=== PATIENT | male | born 1975 | race Caucasian/White ===

== ENCOUNTER → 2022-07-26 14:52 | Outpatient (CLI) | payer OTHER, SELFPAY ==
[2022-07-26 16:15] LABS: Add Manual Diff / Slide Review NO; Basophils Absolute Auto 0 /uL (0-100); Basophils Percent Auto 0.6 % (0-2); Eosinophils Absolute Auto 200 /uL (0-450); Hematocrit 45.6 % (41-53); Hemoglobin 15.6 g/dL (13.5-17.5); Lymphocytes Absolute Auto 2100 /uL (1100-4500); Lymphocytes Percent Auto 27.1 % (25-40); Mean Corpuscular HGB Conc 34.3 % (30-36); Mean Corpuscular Hemoglobin 31.4 PG (26-34); Mean Corpuscular Volume 91.5 fL (80-100); Monocytes Absolute Auto 600 /uL (0-900); Monocytes Percent Auto 8.2 % (3-14); Neutrophils Absolute Auto 4700 /uL (1500-7000); Neutrophils Percent Auto 61.1 % (50-75); Platelet Count 224 X10^3/uL (150-400); Red Blood Cell Count 4.98 X10^6/uL (4.5-5.9); Red Cell Distribution Width 13.5 % (11.6-14.8); White Blood Cell Count 7.8 X10^3/uL (4.5-11.0)
[2022-07-26 16:25] LABS: Hemoglobin A1C% w Est Avg Glu 5.2 % (4.0-6.0)
[2022-07-26 17:21] LABS: Alanine Aminotransferase 28 IU/L (<50); Albumin 4.5 g/dL (3.5-5.0); Albumin Globulin Ratio 1.3 (1.0-2.8); Alkaline Phosphatase 81 U/L (38-126); Aspartate Aminotransferase 30 IU/L (17-59); BUN Creatinine Ratio 14.7 (6-22); Bilirubin Total 0.8 mg/dL (0.2-1.3); Blood Urea Nitrogen 15 mg/dL (9-20); Calcium 9.7 mg/dL (8.4-10.2); Carbon Dioxide 29 mmol/L (22-32); Chloride 104 mmol/L (98-107); Cholesterol 241 mg/dL (140-199); Estimated Glomerular Filt Rate > 60 mL/min (>60); Globulin 3.4 g/dL (1.7-4.1); Glucose 101 mg/dL (70-100); HDL Cholesterol 59 mg/dL (40-60); HEMOLYSIS 22 (0-50); LDL Cholesterol Calculated 118 mg/dL (<100); Lipase 165 U/L (23-300); Potassium 4.3 mmol/L (3.4-5.1); Sodium 142 mmol/L (137-145); Total Protein 7.9 g/dL (6.3-8.2); Triglycerides 322 mg/dL (35-150)
== END ==
PROVIDERS: PCP Family Medicine; Referring Provider Family Medicine; Visit Provider Family Medicine
DX: F17.200 Nicotine dependence, unspecified, uncomplicated (principal); R14.0 Abdominal distension (gaseous); Z78.9 Other specified health status
CPT/HCPCS: 36415; 80053; 80061; 83036; 83690; 85025

== ENCOUNTER → 2022-09-06 09:36 | Outpatient (CLI) | payer OTHER, SELFPAY ==
--- NOTE | 2022-09-06 09:37 | DI.CT.S_ITS ---
PROCEDURE: CT ABDOMEN PELVIS W CON INDICATIONS: lower abd pain TECHNIQUE: After the administration of oral and IV contrast, axial sections were acquired from the lung bases to the pubic symphysis. Coronal and sagittal reformats were performed. For radiation dose reduction, the following was used: automated exposure control, adjustment of mA and/or kV according to patient size. COMPARISON: None. FINDINGS: Image quality: Excellent. Lung bases: Unremarkable. Mild concentric thickening of the distal esophagus. Heart: No significant findings. ABDOMEN: Liver: Normal size. Mild hepatic steatosis. Gallbladder: Unremarkable. Biliary ducts: Unremarkable. Pancreas: Unremarkable. Spleen: Unremarkable. There is a 0.5 cm soft tissue nodule inferior to the spleen, most likely a splenule. Adrenal Glands: Unremarkable. Kidneys and Ureters: Unremarkable. Stomach and Bowel: Stomach, small bowel loops, and colon are normal in caliber. Appendix is normal. Mild diverticulosis without diverticulitis. Appearance of mild colonic wall thickening involving the ascending and transverse colon is noted, which could be caused by inadequate distention. Peritoneum: No abnormal intraperitoneal fluid. No free air. Ventral Wall: No hernia. Abdominal Nodes: No retroperitoneal or mesenteric adenopathy by size criteria. Vessels: Aorta and inferior vena cava are normal in size. PELVIS: Pelvic Organs: Unremarkable. Bladder: Unremarkable. Pelvic Nodes: No enlarged lymph nodes. Miscellaneous: No inguinal hernias are seen. Bones: Mild degenerative disc and facet disease in lumbar spine. IMPRESSION: 1. No acute abnormalities in abdomen or pelvis. 2. Normal appendix. 3. Mild diverticulosis. No acute diverticulitis. 4. Appearance of mild colonic wall thickening involving the ascending and transverse colon may be secondary to inadequate distention. 5. Mild hepatic steatosis. 6. Mild concentric thickening at the gastroesophageal junction. This finding may be secondary to esophagitis or gastroesophageal reflux. If clinically indicated, esophagram can be obtained for follow-up evaluation. Dictated by: Rafaela Ayala M.D. on 09/06/2022 at 10:43 Approved by: Rafaela Ayala M.D. on 09/06/2022 at 10:49
== END ==
PROVIDERS: PCP Family Medicine; Referring Provider Family Medicine; Visit Provider Family Medicine
DX: K57.90 Diverticulosis of intestine, part unspecified, without perforation or abscess without bleeding (principal); K76.0 Fatty (change of) liver, not elsewhere classified; R10.30 Lower abdominal pain, unspecified
CPT/HCPCS: 74177; Q9967

== ENCOUNTER 2023-12-29 09:14 | Emergency (ER) | payer OTHER, SELFPAY ==
[2023-12-29 09:15] VITALS: BP 126/78; PULSE 79; RESP 14; TEMP 36.7; O2SAT 99; BMI 22.1
[2023-12-29 09:17] VITALS: O2SAT 95
[2023-12-29 09:18] VITALS: BP 126/78; PULSE 80; O2SAT 99
--- NOTE | 2023-12-29 09:23 | ED_ITS ---
HPI - Abdominal Pain General Chief Complaint: Abdominal Pain Stated Complaint: sent from [facility] needs ct scan? Time Seen by Provider: 12/29/23 09:16 Source: patient Mode of arrival: Ambulatory History of Present Illness HPI narrative: 48yoM with no reported PMH (however being evaluated by GI for early satiety and 'stomach issues') presents by private vehicle from the walk-in clinic for right lower quadrant abdominal pain. Patient states that he has had 2 days of constant, aggravating, nonradiating abdominal pain. Denies nausea or vomiting. Some diarrhea yesterday. He initially went to the walk-in clinic but they referred him to the emergency department for evaluation. Denies fevers or chills or any other complaints at this time. Related Data Previous Rx's Medication Instructions Recorded levofloxacin 750 mg tablet 750 mg PO DAILY #10 tabs 12/29/23 metronidazole 500 mg tablet 500 mg PO TID #30 tabs 12/29/23 tramadol 50 mg tablet 50 mg PO Q8H PRN pain #14 tabs 12/29/23 Allergies Allergy/AdvReac Type Severity Reaction Status Date / Time amoxicillin Allergy Mild Rash Verified 12/29/23 09:19 Review of Systems Review of Systems Narrative: Negative except as noted above Patient History Medical History Hyperlipidemia Vision disorder Anxiety ADHD (~1977) Alcohol use Tobacco dependence Abdominal bloating Surgical History Anesthesia History of facial surgery (~2012) Social History Smoking Status: Current every day smoker Smoking Status: Current every day smoker alcohol intake frequency: 3 or more drinks per day Substance Use Type: does not use Exam Initial Vital Signs Initial Vital Signs: Vital Signs Temperature 98.0 F 12/29/23 09:15 Pulse Rate 79 12/29/23 09:15 Respiratory Rate 14 12/29/23 09:15 Blood Pressure 126/78 12/29/23 09:15 Pulse Oximetry 99 12/29/23 09:15 Oxygen Delivery Method Room Air 12/29/23 09:15 Const: Awake, alert, no acute distress, nontoxic appearing Cardiac: regular rate, regular rhythm RESP: unlabored, clear bilaterally, no wheezing GI: Soft, right lower quadrant tenderness to deep palpation, negative Rovsing sign MSK: Atraumatic, full range of motion, pulses equal Skin: Warm, Dry, intact, no rashes Neuro: AO x3, CN II-XII grossly intact, moves all extremities Course Orders Ordered: Discontinued Medications Sodium Chloride (Normal Saline 0.9%) 1,000 mls @ 1,000 mls/hr IV BOLUS ONE Stop: 12/29/23 10:20 Last Infusion: 12/29/23 11:20 Dose: Infused Documented By: Admin: 12/29/23 09:26 Dose: 1,000 mls/hr Documented By: VICKIE Morphine Sulfate (Morphine 4 Mg/Ml Inj) 4 mg IV NOW ONE Stop: 12/29/23 09:22 Last Admin: 12/29/23 09:25 Dose: 4 mg Documented By: VICKIE Morphine Sulfate (Morphine 4 Mg/Ml Inj) 4 mg IV NOW ONE Stop: 12/29/23 10:25 Last Admin: 12/29/23 11:56 Dose: Not Given Documented By: LENA Ondansetron HCl (Ondansetron 4 Mg/2 Ml Inj) 4 mg IV NOW PRN PRN Reason: Nausea And Vomiting Vital Signs Vital signs: Vital Signs - 8 hr 12/29/23 09:15 12/29/23 09:17 12/29/23 09:18 Temperature 98.0 F Pulse Rate 79 Respiratory Rate 14 Blood Pressure 126/78 126/78 Pulse Oximetry 99 95 Oxygen Delivery Method Room Air 12/29/23 09:18 Temperature Pulse Rate 80 Respiratory Rate Blood Pressure Pulse Oximetry 99 Oxygen Delivery Method MDM - Abdominal Pain Differential Diagnosis Differential diagnosis: Likely abdominal pain, acute appendicitis and calculus of kidney Lab Data 12/29/23 09:25 12/29/23 09:25 Labs: Lab Results 12/29/23 12/29/23 Range/Units 09:25 09:30 WBC 13.6 H (4.5-11.0) X10^3/uL RBC 5.24 (4.5-5.9) X10^6/uL Hgb 16.4 (13.5-17.5) g/dL Hct 48.5 (41-53) % MCV 92.5 (80-100) fL MCH 31.3 (26-34) PG MCHC 33.9 (30-36) % RDW 12.7 (11.6-14.8) % Plt Count 256 (150-400) X10^3/uL Neut % (Auto) 78.4 H (50-75) % Lymph % (Auto) 11.5 L (25-40) % [place] % (Auto) 8.5 (3-14) % Eos % (Auto) 1.3 L (2-4) % Baso % (Auto) 0.3 (0-2) % Neut # (Auto) 79250 H (8415-9333) /uL Lymph # (Auto) 1600 (8924-7777) /uL [place] # (Auto) 1200 H (0-900) /uL Eos # (Auto) 200 (0-450) /uL Baso # (Auto) 0 (0-100) /uL Sodium 135 L (137-145) mmol/L Potassium 3.8 (3.4-5.1) mmol/L Chloride 104 (98-107) mmol/L Carbon Dioxide 29 (22-32) mmol/L BUN 10 (9-20) mg/dL Creatinine 0.92 (0.66-1.25) mg/dL Estimated GFR > 60 (>60) mL/min BUN/Creatinine Ratio 10.9 (6-22) Glucose 92 (70-100) mg/dL Lactate 0.8 (0.7-2.1) mmol/L Calcium 9.6 (8.4-10.2) mg/dL Total Bilirubin 1.4 H (0.2-1.3) mg/dL AST 22 (17-59) IU/L ALT 21 (<50) IU/L Alkaline Phosphatase 95 (38-126) U/L Total Protein 7.8 (6.3-8.2) g/dL Albumin 4.3 (3.5-5.0) g/dL Globulin 3.5 (1.7-4.1) g/dL Albumin/Globulin Ratio 1.2 (1.0-2.8) Lipase 103 (23-300) U/L Urine Color Yellow Urine Appearance Clear Urine pH 6.5 (4.5-8.0) Ur Specific [place] 1.015 (1.000-1.035) Urine Protein Trace H (Negative) Urine Glucose (UA) Negative (Negative) g/dL Urine Ketones 1+ H (NEGATIVE) Urine Occult Blood 1+ H (Negative) Urine Nitrate Negative (Negative) Urine Bilirubin 1+ H (NEGATIVE) Ur Bilirubin Confirm Negative (Negative) Urine Urobilinogen 0.2 (0.2) E.U./dL Ur Leukocyte Esterase Negative (NEGATIVE) Urine RBC 0-1/hpf (0-5/HPF) Urine WBC 0-1/hpf (0-5/HPF) Ur Squamous Epith Cells None seen (0-5/HPF) Urine Bacteria None seen (None) Urine Mucus 1+ H (Negative) Ur Culture Indicated? Cult not indicated Vol Urine Centrifuged 10ml (spun) Point of care testing: Urine Dip Bedside Urine Glucose Negative Bedside Urine Bilirubin + 1 Bedside Urine Ketone ++ 40 Urine Specific [place] 1.015 Bedside Urine Occult Blood ++ Bedside Urine pH 6.0 Bedside Urine Protein +/- 15 Bedside Urine Urobilinogen - Negative Bedside Urine Nitrite - Negative Bedside Urine Leukocytes +/- [address] scan - abdomen/pelvis: Radiologist's Impression: PROCEDURE: CT ABDOMEN PELVIS W CON INDICATIONS: RLQ ABD PAIN TECHNIQUE: After the administration of intravenous contrast, axial sections acquired from the lung bases to the pubic symphysis. Coronal and sagittal reformats were performed. For radiation dose reduction, the following was used: automated exposure control, adjustment of mA and/or kV according to patient size. COMPARISON: [facility], CT, CT ABDOMEN PELVIS WITH CONTRAST, 07/19/2023, 14:11. [facility], CT, CT ABDOMEN PELVIS W CON, 09/06/2022, 9:41. FINDINGS: Image quality: Diagnostic. Lower Chest: No significant findings. ABDOMEN: Liver: No solid mass. Mild steatosis. Liver measures 16.5 cm. Punctate low- attenuation focus in the superior right hepatic dome. It is too small to definitively characterize but suggestive of a small cyst. Gallbladder: No radiopaque gallstones or wall thickening. Biliary ducts: No biliary dilation. Pancreas: No ductal dilation. Spleen: Size is within normal limits. Adrenal Glands: No adrenal nodules. Kidneys and Ureters: No hydronephrosis. No solid mass. No complex renal cystic lesion which requires follow up. Stomach and Bowel: No obstruction. There is inflammatory change within the proximal ascending colon particularly at the cecum. Diverticula are present. The appendix is identified and appears normal. Peritoneum: No abnormal intraperitoneal fluid. No free air. Ventral Wall: Trace fat containing ventral hernia. Abdominal Nodes: No retroperitoneal or mesenteric adenopathy by size criteria. Vessels: Aorta and inferior vena cava are normal in size. PELVIS: Pelvic Organs: Unremarkable. Bladder: No bladder wall thickening, accounting for underdistention. Pelvic Nodes: No enlarged lymph nodes. Miscellaneous: No inguinal hernias are seen. Bones: No aggressive osseous abnormality. IMPRESSION: Inflammatory change within the proximal ascending colon most consistent with colitis secondary to diverticulitis. No perforation. Dictated by: Barbie Sliver M.D. on 12/29/2023 at 11:03 Approved by: Barbie Silver M.D. on 12/29/2023 at 11:11 [facility] Narrative Medical decision making narrative: Two days of right lower quadrant abdominal pain. Abdomen is soft but he does have marked reproducible tenderness to palpation in the right lower quadrant. Laboratory work, CT imaging, medications for pain and nausea ordered. Laboratory work is significant for WBC count 13.6, other laboratory work is unremarkable. CT scan is significant for diverticulitis in the proximal ascending colon, appendix is visualized and normal. Patient and his significant other were advised of all lab and imaging findings at bedside, pain is well controlled, abdomen is soft and non peritoneal. Patient to be discharged home on antibiotics. Reports allergy to penicillins so levofloxacin and Flagyl sent to pharmacy of choice. Patient given course of pain medication, but advised that these may cause constipation and to be very careful as constipation can worsen his condition. Recommended daily stool softener. Patient also advised to follow up with his GI doctors once the colitis resolves. ED return precautions discussed at bedside. Patient expressed understanding of the plan and is in agreement at this time. All questions answered at the time of discharge. Discharge Plan Departure Patient Disposition: Home Clinical Impression: Colitis Instructions: DI for Abdominal Pain-Adult Activity Restrictions/Additional Instructions: Take all antibiotics as prescribed. The pain medication prescribed may cause constipation, take a daily stool softener to prevent constipation. If you do not notice an improvement in your symptoms despite taking antibiotics or have severe uncontrolled pain please return to the emergency department for repeat evaluation. Follow up with your gastroenterology team. Prescriptions: New metronidazole 500 mg tablet 500 mg PO TID Qty: 30 0RF levofloxacin 750 mg tablet 750 mg PO DAILY Qty: 10 0RF tramadol 50 mg tablet 50 mg PO Q8H PRN (Reason: pain) Qty: 14 0RF Referrals: Shereen Beyer DO [Primary Care Provider] - Stand Alone Forms: Patient Portal/API
[2023-12-29] MEDS: MORPHINE 4 MG/ML INJ IV (09:25)
[2023-12-29] MEDS: SODIUM CHLORIDE 0.9% 1,000 ML 1000 ML IV (09:26)
[2023-12-29 09:43] LABS: Add Manual Diff / Slide Review NO; Basophils Absolute Auto 0 /uL (0-100); Basophils Percent Auto 0.3 % (0-2); Eosinophils Absolute Auto 200 /uL (0-450); Eosinophils Percent Auto 1.3 % (2-4); Hematocrit 48.5 % (41-53); Hemoglobin 16.4 g/dL (13.5-17.5); Lymphocytes Absolute Auto 1600 /uL (1100-4500); Lymphocytes Percent Auto 11.5 % (25-40); Mean Corpuscular HGB Conc 33.9 % (30-36); Mean Corpuscular Hemoglobin 31.3 PG (26-34); Mean Corpuscular Volume 92.5 fL (80-100); Monocytes Absolute Auto 1200 /uL (0-900); Monocytes Percent Auto 8.5 % (3-14); Neutrophils Absolute Auto 10700 /uL (1500-7000); Neutrophils Percent Auto 78.4 % (50-75); Platelet Count 256 X10^3/uL (150-400); Red Blood Cell Count 5.24 X10^6/uL (4.5-5.9); Red Cell Distribution Width 12.7 % (11.6-14.8); White Blood Cell Count 13.6 X10^3/uL (4.5-11.0)
[2023-12-29 09:46] LABS: Appearance Urine UA CLEAR; Bilirubin Urine UA 1+ (NEGATIVE); Color Urine UA YELLOW; Glucose Urine UA NEGATIVE (Negative); Ketones Urine UA 1+ (NEGATIVE); Leukocyte Esterase Urine UA NEGATIVE (NEGATIVE); Nitrite Urine UA NEGATIVE (Negative); Occult Blood Urine UA 1+ (Negative); Protein Urine UA TRACE (Negative); Specific Gravity Urine UA 1.015 (1.000-1.035); Urobilinogen Urine UA 0.2 E.U./dL (0.2); pH Urine UA 6.5 (4.5-8.0)
[2023-12-29 09:50] LABS: Ictotest Urine Negative (Negative)
[2023-12-29 09:53] LABS: Alanine Aminotransferase 21 IU/L (<50); Albumin 4.3 g/dL (3.5-5.0); Albumin Globulin Ratio 1.2 (1.0-2.8); Alkaline Phosphatase 95 U/L (38-126); Aspartate Aminotransferase 22 IU/L (17-59); BUN Creatinine Ratio 10.9 (6-22); Bilirubin Total 1.4 mg/dL (0.2-1.3); Blood Urea Nitrogen 10 mg/dL (9-20); Calcium 9.6 mg/dL (8.4-10.2); Carbon Dioxide 29 mmol/L (22-32); Chloride 104 mmol/L (98-107); Estimated Glomerular Filt Rate > 60 mL/min (>60); Globulin 3.5 g/dL (1.7-4.1); Glucose 92 mg/dL (70-100); HEMOLYSIS < 15 (0-50); Lipase 103 U/L (23-300); Potassium 3.8 mmol/L (3.4-5.1); Sodium 135 mmol/L (137-145); Total Protein 7.8 g/dL (6.3-8.2)
[2023-12-29 09:54] LABS: Lactate (Lactic Acid) 0.8 mmol/L (0.7-2.1)
[2023-12-29 09:57] LABS: Bacteria Urine None Seen; Culture Indicated Urine Cult Not Indicated; Mucus Urine 1+ (Negative); RBC Urine 0-1/HPF (0-5/HPF); Squamous Epithelial Cell Urine None Seen (0-5/HPF); Urine Volume 10mL (spun); WBC Urine 0-1/HPF (0-5/HPF)
[2023-12-29 10:30] VITALS: BP 122/78; PULSE 76; RESP 16; O2SAT 99
[2023-12-29 12:00] VITALS: BP 129/77; PULSE 77; RESP 16; O2SAT 98
== END 2023-12-29 12:18 | disposition home or self-care (01) ==
PROVIDERS: Emergency Provider Emergency Medicine; PCP Family Medicine
DX: K52.9 Noninfective gastroenteritis and colitis, unspecified (principal)
CPT/HCPCS: 36415; 74177; 80053; 81001; 81003; 83605; 83690; 85025; 93005; 96361; 96374; 99284; J2270; Q9967

== ENCOUNTER → 2024-05-22 10:58 | Outpatient (CLI) | payer OTHER, SELFPAY ==
[2024-05-22 13:05] LABS: Cholesterol 222 mg/dL (140-199); HDL Cholesterol 81 mg/dL (40-60); LDL Cholesterol Calculated 105 mg/dL (<100); Triglycerides 182 mg/dL (35-150)
[2024-05-22 13:40] LABS: Prostate Specific Antigen Scrn 1.25 ng/mL (0.1-4.0)
[2024-05-22 13:55] LABS: HIV 1 & 2 Ab/Ag 4th Gen Combo NEGATIVE (NEGATIVE); Hep C Virus Ab w/Reflex Quant NEGATIVE s/c (NEGATIVE)
== END ==
LOC: LAB 10:59
PROVIDERS: PCP Family Medicine; Referring Provider Family Medicine; Visit Provider Family Medicine
DX: Z12.5 Encounter for screening for malignant neoplasm of prostate (principal); E78.5 Hyperlipidemia, unspecified; F17.200 Nicotine dependence, unspecified, uncomplicated; Z11.4 Encounter for screening for human immunodeficiency virus [HIV]; Z11.59 Encounter for screening for other viral diseases
CPT/HCPCS: 36415; 80061; 86803; 87389; G0103

== ENCOUNTER → 2024-06-12 14:23 | Outpatient (CLI) | payer OTHER, SELFPAY ==
--- NOTE | 2024-06-12 14:45 | DI.CT.S_ITS ---
PROCEDURE: CT LUNG LOW DOSE SCREENING INDICATIONS: Nicotine Dependence lung screening TECHNIQUE: Noncontrast 2.0-2.5 mm thick sections acquired from the pulmonary apices to the posterior costophrenic angles. 7 mm thick axial MIP, and 5 mm coronal and sagittal reformats were then acquired. For radiation dose reduction, the following was used: automated exposure control, adjustment of mA and/or kV according to patient size. COMPARISON: None. FINDINGS: Image quality: Diagnostic. Lungs: No significant emphysema. No pleural effusion, pneumothorax, pulmonary edema, or focal consolidation. Scattered sub 4 mm pulmonary nodules. Mediastinal/soft tissue findings: The thoracic aorta is unremarkable. No thoracic aortic aneurysm. Heart is normal in size. No pericardial effusion. No significant coronary artery calcification. No mediastinal, hilar, or axillary lymphadenopathy. Upper abdomen: Subcentimeter hypoattenuating lesion in hepatic segment 4A (2:53 a.m.), too small to be characterized. Bones: No suspicious lytic or blastic lesion. IMPRESSION: No suspicious pulmonary nodules. LUNG-RADS 1; continued annual screening, if eligible. Clinically Significant Non-pulmonary Findings: None. Dictated by: Dede López M.D. on 06/13/2024 at 12:55 Approved by: Dede López M.D. on 06/13/2024 at 13:05
== END ==
PROVIDERS: PCP Family Medicine; Referring Provider Family Medicine; Visit Provider Family Medicine
DX: Z12.2 Encounter for screening for malignant neoplasm of respiratory organs (principal); Z87.891 Personal history of nicotine dependence; R91.8 Other nonspecific abnormal finding of lung field
CPT/HCPCS: 71271

== ENCOUNTER → 2024-10-17 09:29 | Outpatient (CLI) | payer OTHER, SELFPAY | PROVIDERS: PCP Family Medicine; Visit Provider Nurse Practitioner Family | DX: J02.9 Acute pharyngitis, unspecified (principal) | CPT/HCPCS: 87070 ==

== ENCOUNTER 2025-01-31 08:46 | Emergency (ER) | payer OTHER, SELFPAY ==
[2025-01-31 08:59] VITALS: BP 130/75; PULSE 79; RESP 17; TEMP 36.6; O2SAT 96; BMI 23.3
--- NOTE | 2025-01-31 10:25 | DI.RAD.S_ITS ---
PROCEDURE: XR RIBS LT MIN 3V W CXR1V INDICATIONS: left rib pain after fall on someone's leg TECHNIQUE: 2 views of the ribs were acquired, along with a single view chest. COMPARISON: None. FINDINGS: Surgical changes and devices: None. Bones and chest wall: No fractures or dislocations. No suspicious bony lesions. Overlying soft tissues appear unremarkable. Lungs and pleura: No pleural effusions or pneumothorax. Lungs appear clear. Mediastinum: Mediastinal contours appear normal. Heart size is normal. IMPRESSION: No displaced rib fracture or pneumothorax. A nondisplaced rib fracture may become visible several days after injury but may not be visible initially. Follow-up plain films could be obtained if clinically warranted subsequently. Dictated by: Ramiro Baez M.D. on 01/31/2025 at 10:46 Approved by: Ramiro Baez M.D. on 01/31/2025 at 10:47
[2025-01-31] MEDS: KETOROLAC 30 MG/ML VIAL IM (10:45)
[2025-01-31 12:24] VITALS: BP 123/76; PULSE 73; RESP 14; O2SAT 100
--- NOTE | 2025-01-31 20:50 | ED_ITS ---
HPI - Back Pain/Injury General Chief Complaint: Back Pain/Injury Stated Complaint: Left side pain, fell 01/27 Time Seen by Provider: 01/31/25 09:34 Source: patient History of Present Illness HPI Narrative: This 49-year-old male presents to the emergency room with a complaint that he fell on a friend's leg against his left chest a few days ago and he has had persistent severe lower left chest tenderness is resolved. The pain is exacerbated by deep breath and movement. It is also aggravated by cough or sneeze. Patient has not coughed up any blood. He is a smoker. Related Data Previous Rx's Medication Instructions Recorded hydrocodone 5 mg-acetaminophen 325 1 tab PO Q6H PRN pain #10 tabs 05//25 mg tablet hydrocodone 5 mg-acetaminophen 325 1 tab PO Q6H PRN pain #10 tabs 05//25 mg tablet Allergies Allergy/AdvReac Type Severity Reaction Status Date / Time amoxicillin Allergy Mild Rash Verified 01/31/25 09:11 Review of Systems Review of Systems Narrative: Review of systems is negative except for chest revealing moderately severe pain over the left lower anterolateral chest. Patient History Medical History Hyperlipidemia Vision disorder Anxiety ADHD (~1977) Alcohol use Tobacco dependence Abdominal bloating Surgical History Anesthesia History of facial surgery (~2012) Social History Smoking Status: Current every day smoker Smoking Status: Current every day smoker alcohol intake frequency: 3 or more drinks per day Exam Initial Vital Signs Initial Vital Signs: Vital Signs Temperature 98 F 01/31/25 08:59 Pulse Rate 79 01/31/25 08:59 Respiratory Rate 17 01/31/25 08:59 Blood Pressure 130/75 01/31/25 08:59 Pulse Oximetry 96 01/31/25 08:59 Oxygen Delivery Method Room Air 01/31/25 08:59 Const Other: Middle-aged adult male who appears extremely uncomfortable particularly on movement Resp Other: Moderately severe left lower anterolateral chest tenderness without overlying crepitus. Splinting and breath sounds bilaterally. Cardio Other: Regular rhythm without murmur. Course Course Course Narrative: This 49-year-old male presents to the emergency room with a complaint of left lower anterolateral chest pain which appears to be from a rib contusion or nondisplaced rib fracture. This is because the patient's left rib series reveals no clear rib fracture but with the degree of pain on his exam and the location of the patient's pain on chest x-ray and the splinting and breath so unds it is speculated that he has a nondisplaced lower rib fracture on the left. He is recommended using a rib belt or a buoyancy vest to splint his cost and sneezes and attempt to sleep without significant pain. He was given Toradol in the ER but he did get get much pain relief so he was prescribed hydrocodone 01/3251 p.o. q.6 hours as needed 10., 3 day supply this was printed as my VAP access is not functionally shaped with the hospital. He should follow up in the next week for reexam. He should not do any heavy lifting more than 5 lb over the next 2 weeks. Orders Ordered: Discontinued Medications Ketorolac Tromethamine (Ketorolac 30 Mg/Ml Vial) 30 mg IM NOW ONE Stop: 01/31/25 10:29 Last Admin: 01/31/25 10:45 Dose: 30 mg Documented By: CTS MDM - Back Pain/Injury Medical Records Attestation: I reviewed the patient's medical records. Medical records narrative: Differential includes rib fracture versus rib contusion versus intercostal muscle strain it was concluded that the patient most likely has a nondisplaced rib fracture due to the degree of his pain in the splinting in his chest. Discharge Plan Departure Patient Disposition: Home Clinical Impression: Contusion of rib on left side Activity Restrictions/Additional Instructions: No heavy lifting more than 5 lb for 1-2 weeks. Abdominal binder or a buoyancy vest splint coughs and sneezes and reduce pain sleeping and driving. Decrease smoking while wearing a binder. Follow-up regular provider in 1 week to reassess injury. Ice to tender areas needed next 2 days. Hydrocodone 01/3251 p.o. Q 4-6 hours as needed pain Prescriptions: New hydrocodone-acetaminophen 5-325 mg tablet 1 tab PO Q6H PRN (Reason: pain) Qty: 10 0RF Rx Instructions: 1 tab every 6 hours as needed for pain hydrocodone-acetaminophen 5-325 mg tablet 1 tab PO Q6H PRN (Reason: pain) Qty: 10 0RF Rx Instructions: 1 tab every 6 hours as needed for pain Referrals: Shereen Beyer DO [Primary Care Provider] - Stand Alone Forms: Patient Portal/API/Survey
== END 2025-01-31 12:45 | disposition home or self-care (01) ==
PROVIDERS: Emergency Provider Emergency Medicine; PCP Family Medicine
DX: S20.212A Contusion of left front wall of thorax, initial encounter (principal); W19.XXXA Unspecified fall, initial encounter
CPT/HCPCS: 71101; 99283; J1885